=== PATIENT | female | born 1975 | race African-American/Black ===

== ENCOUNTER → 2021-02-07 | Day surgery (SDC) | payer MEDICARE ==
[~2021-02-07] VITALS: Ht 167.6 cm; Wt 130.9 kg
[~2021-02-07] MED LIST: ACETAMINOPHEN500 M1 PO; ASA PO; COLACE100 MG PO; DRISDOL50000 UNIT PO; EUTHYROX25 MCG PO; LIDOCAINE 2%30 ML TOP; MOTRIN600 MG PO; OXY-IR 5MG5 MG PO; PHENTERMINE H37.5 MG PO; TIZANIDINE HCL4 MG PO; VICODIN 10/3251 EACH PO
[2021-02-07 07:39] LABS: ALBUMIN 3.5 g/dL (3.4-5.0); BILIRUBIN - TOTAL 0.4 mg/dL (0.2-1.0); BUN/CREAT RATIO (CALC) 12.9 RATIO; CREATININE 0.7 mg/dL (0.51-0.95); POTASSIUM 3.7 mmol/L (3.5-5.1); TOTAL PROTEIN 7.5 g/dL (6.4-8.2)
== END | disposition home or self-care (01) ==
LOC: FAS 06:45
PROVIDERS: Student in an Organized Health Care Education/Training Program
DX: K81.1 Chronic cholecystitis (principal); I89.8 Other specified noninfective disorders of lymphatic vessels and lymph nodes; K82.8 Other specified diseases of gallbladder; E03.9 Hypothyroidism, unspecified; M19.90 Unspecified osteoarthritis, unspecified site; G47.30 Sleep apnea, unspecified; E66.01 Morbid (severe) obesity due to excess calories; Z68.42 Body mass index [BMI] 45.0-49.9, adult; Z79.899 Other long term (current) drug therapy
CPT/HCPCS: 36415; 80053; 82150; 83690; J1100; J1170; J1644; J1885; J2250; J2405; J2704; J3010; J7120